=== PATIENT | male | born 1990 | race Hispanic/Latino ===

== ENCOUNTER 2017-02-16 14:38 | Emergency (ER) | payer OTHER ==
[2017-02-16 14:43] VITALS: BP 133/78; PULSE 92; RESP 18; TEMP 99; O2SAT 100
[2017-02-16] MEDS ORDERED: Sodium Chloride 0.9% 1,000 ML IV SCH (15:15)
--- NOTE | 2017-02-16 15:29 | ED PDOC ---
Syncope/Near Syncope/Dizziness <Chris Mccarthy Y - Last Filed: 02/16/17 17:00> Chief Complaint (Provider): syncope with mild dizziness History Per: Patient History/Exam Limitations: no limitations Onset/Duration Of Symptoms: Hrs Current Symptoms Are (Timing): Still Present Number Of Syncopal Episodes: 1 Activity At Onset Of Symptoms: Sitting Associated Symptoms Preceding Syncopal Episode: Lightheadedness Seizure Or Post-ictal Symptoms: None Fall Associated With With Symptoms: No Severity: None Additional Complaint(s): 27 yo M w PMHx of anxiety presents to ER following one episode of < 4 minute syncope last night and continued, mild dizziness. 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 This even was proceeded by a few second period of dizziness, profuse sweating, and momentary blurry vision. The episode could not have been longer than 4 minutes because the speakers were not presenting for a longer period of time. He also has had a sore throat for previous day, but denies any rhinorrhea, productive cough, ear pain, or feelings of vertigo. He does have a h/o seasonal allergies and takes Claritin-D plus Sertriline 100mg for his anxiety. He denies fevers/chills, vomiting, diarrhea, constipation, chest pain, palpitations, SOB, dyspnea, cough , abdominal pain, hematuria, dysuria, or other myalgias. <Brian Gonzalez T - Last Filed: 02/16/17 17:27> Time Seen by Provider: 02/16/17 14:55 Chief Complaint (Nursing): Syncope Past Medical History Vital Signs: Last Vital Signs Temp 99 F 02/16/17 14:40 Pulse 92 H 02/16/17 14:40 Resp 18 02/16/17 14:40 BP 133/78 02/16/17 14:40 Pulse Ox 100 02/16/17 15:32 <Chris Mccarthy Y - Last Filed: 02/16/17 17:00> Reviewed: Historical Data, Nursing Documentation, Vital Signs Vital Signs: Last Vital Signs Temp 99 F 02/16/17 14:40 Pulse 92 H 02/16/17 14:40 Resp 18 02/16/17 14:40 BP 133/78 02/16/17 14:40 Pulse Ox 100 02/16/17 14:40 - Medical History PMH: Anxiety, Depression - Family History Family History: States: Unknown Family Hx <Brian Gonzalez T - Last Filed: 02/16/17 17:27> - Home Medications Home Medications: Ambulatory Orders Medication Instructions Recorded Amoxicillin/Clavulanate [Augmentin 1 tab PO BID #9 tab 01/11/16 875 MG-125 MG] - Allergies Allergies/Adverse Reactions: Allergies Allergy/AdvReac Type Severity Reaction Status Date / Time No Known Allergies Allergy Verified 02/08/16 09:47 Review of Systems ROS Statement: Except As Marked, All Systems Reviewed And Found Negative (see HPI) <Brian Gonzalez T - Last Filed: 02/16/17 17:27> Physical Exam - Reviewed Nursing Documentation Reviewed: Yes Vital Signs Reviewed: Yes - Physical Exam Appears: Positive for: Non-toxic, No Acute Distress Head Exam: Positive for: ATRAUMATIC, NORMAL INSPECTION, NORMOCEPHALIC Skin: Positive for: Normal Color, Warm, Dry Eye Exam: Positive for: Normal appearance, EOMI, PERRL ENT: Positive for: Normal ENT Inspection. Negative for: Nasal Congestion, Pharyngeal Erythema, Tonsillar Exudate Neck: Positive for: Normal, Painless ROM Cardiovascular/Chest: Positive for: Regular Rate, Rhythm. Negative for: Edema Respiratory: Positive for: Normal Breath Sounds. Negative for: Crackles, Wheezing, Respiratory Distress Gastrointestinal/Abdominal: Positive for: Normal Exam, Soft. Negative for: Tenderness Extremity: Negative for: Pedal Edema, Calf Tenderness Neurologic/Psych: Positive for: Alert, head filter press tender II-XII, Oriented <Brian Gonzalez T - Last Filed: 02/16/17 17:27> - Laboratory Results Result Diagrams: 02/16/17 15:33 02/16/17 15:33 <Chris Mccarthy Y - Last Filed: 02/16/17 17:00> - Laboratory Results Result Diagrams: 02/16/17 15:33 02/16/17 15:33 - ECG O2 Sat by Pulse Oximetry: 100 - Progress ED Course And Treament: 27 yo M w PMHx of anxiety presents to ER following one episode of < 4 minute syncope last night and continued, mild dizziness -CBC -CMP -Rapid Strep -Flu -NS 1L x1 -Motrin 600mg PO x1 Update 1645: -CT Head resulted negative, no acute bleeding -EKG Normal Sinus Rhythm w/o ectopy -Patient status and complaints are improved -To be discharged home Condition: Re-examined, Improved <Brian Gonzalez T - Last Filed: 02/16/17 17:27> Medical Decision Making Medical Decision Making: Time: 16:32 --Patient was seen by myself, Dr. Mccarthy, and is here for presyncopal episode. --Patient is asymptomatic now. --Will check labs, head CT, and EKG. Time: 16:36 --Head CT FINDINGS: HEMORRHAGE: No intracranial hemorrhage. BRAIN: No mass effect or edema. The redmond-white matter differentiation appears intact. Please note that MRI with diffusion imaging is more sensitive in the detection of acute ischemic event. VENTRICLES: No hydrocephalus. CALVARIUM: Unremarkable. PARANASAL SINUSES: Unremarkable as visualized. No significant inflammatory changes. MASTOID AIR CELLS: Unremarkable as visualized. No inflammatory changes. OTHER FINDINGS: None. IMPRESSION: No acute intracranial pathology identified. Time: 16:58 Sinus EKG shows rate of 59 beats per minute. <Chris Mccarthy Y - Last Filed: 02/16/17 17:00> Disposition <Chris Mccarthy Y - Last Filed: 02/16/17 17:00> - Disposition Disposition: Routine/Home Disposition Time: 16:55 <Brian Gonzalez - Last Filed: 02/16/17 17:27> - Clinical Impression Clinical Impression: Pre-syncope - Disposition Referrals: [facility] [Outside] [facility] [Outside] Flavio Dennis MD [Staff Provider] - Condition: IMPROVED Additional Instructions: follow up with cardiology for further evaluation within one week return to the ED with any worsening or concerning symptoms Instructions: Near Syncope (ED)
[2017-02-16 15:43] LABS: BASO # 0.1 K/uL (0.0-0.2); EOS # 0.2 K/uL (0.0-0.7); EOS % 3.5 % (0.0-4.0); HEMATOCRIT 43.7 % (35.0-51.0); LYMPH # 1.8 K/uL (1.0-4.3); LYMPH % 28.1 % (20.0-40.0); MEAN CELL VOLUME 89.5 fl (80.0-94.0); MEAN CORPUSCULAR HEMOGLOBIN 29.4 pg (27.0-31.0); MEAN CORPUSCULAR HGB CONC 32.9 g/dL (33.0-37.0); MEAN PLATELET VOLUME 6.6 fl (7.2-11.7); MONO # 0.4 K/uL (0.0-0.8); MONO % 5.7 % (0.0-10.0); NEUT % 61.7 % (50.0-75.0); RED CELL DISTRIBUTION WIDTH 12.9 % (11.5-14.5); WHITE BLOOD COUNT 6.5 K/uL (4.8-10.8)
[2017-02-16 16:07] LABS: ALB/GLOB RATIO 1.8 (1.0-2.1); ALKALINE PHOSPHATASE 51 U/L (38-126); ALT/SGPT 45 U/L (21-72); AST/SGOT 26 U/L (17-59); BILIRUBIN,TOTAL 0.5 mg/dl (0.2-1.3); BLOOD UREA NITROGEN 14 mg/dl (9-20); CALCIUM 9.5 mg/dL (8.4-10.2); CARBON DIOXIDE 27 mmol/L (22-30); CHLORIDE 103 mmol/L (98-107); GFR AFRICAN-AMERICAN > 60; GLUCOSE,RANDOM 87 mg/dL (75-110); POTASSIUM 3.8 MMOL/L (3.6-5.0); SODIUM 140 mmol/l (132-148); TOTAL PROTEIN 7.7 G/DL (6.3-8.2)
--- NOTE | 2017-02-16 16:37 | CT ---
PROCEDURE: CT HEAD WITHOUT CONTRAST. HISTORY: syncope COMPARISON: None available. TECHNIQUE: Axial computed tomography images were obtained through the head/brain without intravenous contrast. Radiation dose: Total exam DLP = 919.82 mGy-cm. This CT exam was performed using one or more of the following dose reduction techniques: Automated exposure control, adjustment of the mA and/or kV according to patient size, and/or use of iterative reconstruction technique. FINDINGS: HEMORRHAGE: No intracranial hemorrhage. BRAIN: No mass effect or edema. The redmond-white matter differentiation appears intact. Please note that MRI with diffusion imaging is more sensitive in the detection of acute ischemic event. VENTRICLES: No hydrocephalus. CALVARIUM: Unremarkable. PARANASAL SINUSES: Unremarkable as visualized. No significant inflammatory changes. MASTOID AIR CELLS: Unremarkable as visualized. No inflammatory changes. OTHER FINDINGS: None. IMPRESSION: No acute intracranial pathology identified.
== END 2017-02-16 17:39 | disposition home or self-care (01) ==
LOC: H.ER 14:38
DX: R55 Syncope and collapse (principal); R42 Dizziness and giddiness